=== PATIENT | female | born 1960 | race Caucasian/White ===

== ENCOUNTER 2021-04-25 13:54 | Outpatient (REF) | payer BC, SELFPAY ==
[2021-04-25 16:45] LABS: MANUAL DIFF FLAG NO
[2021-04-25 16:48] LABS: Basophils Absolute Auto 0.1 X10*3/uL (0.0-0.2); Basophils Percent Auto 1.3 % (0-2); Eosinophils Absolute Auto 0.2 X10*3/uL (0.0-0.4); Eosinophils Percent Auto 2.1 % (0-4); Hematocrit 41.2 % (37.0-47.0); Hemoglobin 13.5 g/dl (12.0-16.0); Imm Gran Abs Auto 0.02 X10*3/uL (0.00-0.03); Imm Gran Pct Auto 0.3 % (0.0-0.4); Lymphocytes Absolute Auto 2.6 X10*3/uL (1.2-4.9); Lymphocytes Percent Auto 37.3 % (20-40); Mean Corpuscular HGB Conc 32.8 g/dl (31.0-35.0); Mean Corpuscular Hemoglobin 29.4 pg (27.0-33.0); Mean Corpuscular Volume 89.8 fL (80.0-98.0); Mean Platelet Volume 11.7 fL (9.4-12.3); Monocytes Absolute Auto 0.4 X10*3/uL (0.1-1.2); Monocytes Percent Auto 5.7 % (2-11); Neutrophils Absolute Auto 3.8 x10*3/uL (2.0-8.3); Neutrophils Percent Auto 53.3 % (45-73); Platelet Count 263 X10*3/uL (160-400); Red Blood Count 4.59 X10*6/uL (4.20-5.50); Red Cell Distribution Width 13.4 % (11.0-16.0); White Blood Count 7.1 X10*3/uL (4.8-10.8)
[2021-04-25 16:49] LABS: Appearance Urine CLOUDY; Color Urine YELLOW; Glucose Urine UA NEG (NEG); Leukocyte Esterase Urine NEG (NEG); Nitrite Urine NEG (NEG); PH 5.5 (5.0-8.0); Specific Gravity - Urine >= 1.030 (1.005-1.025); Urine Blood NEG (NEG); Urine Ketones NEG (NEG); Urine Protein TRACE MG/DL (NEG-TRACE)
[2021-04-25 17:06] LABS: Alanine Aminotransferase 13 U/L (0-31); Albumin Level 4.1 g/dL (3.5-5.0); Alkaline Phosphatase 92 U/L (39-117); Anion Gap 14 (12-20); Aspartate Amino Transferase 14 U/L (5-31); Bilirubin Total 0.5 mg/dL (0.0-1.0); Blood Urea Nitrogen 13 mg/dL (9-16); Calcium 9.2 mg/dL (8.4-10.2); Carbon Dioxide 24 mmol/L (22-29); Chloride 106 mmol/L (96-108); Cholesterol 220 mg/dL; Estimated Glomerular Filt Rate > 60; Glucose Random 91 mg/dL (60-115); HDL Cholesterol 68 mg/dL; LDL Cholesterol Calculated 129 mg/dl; Potassium 4.3 mmol/L (3.3-5.1); Sodium 140 mmol/L (135-145); Total Protein 6.7 g/dL (6.5-8.0); Triglycerides 119 mg/dL
== END 2021-04-25 13:55 | disposition home or self-care (01) ==
LOC: HO.HMGCLDS 13:54
PROVIDERS: Visit Provider Internal Medicine
DX: I26.99 Other pulmonary embolism without acute cor pulmonale (principal)
CPT/HCPCS: 36415; 80053; 80061; 81003; 85025

== ENCOUNTER 2021-06-27 07:09 | Outpatient (REF) | payer BC, SELFPAY ==
--- NOTE | ~2021-06-27 | XR_ITS ---
EXAMINATION: XR KNEE, RIGHT XR KNEE, STANDING, BILATERAL CLINICAL INFORMATION: Pain. COMPARISON: None TECHNIQUE: AP standing view of both knees and lateral and sunrise views of the right knee. FINDINGS: The single standing AP view of the left knee demonstrates moderate narrowing of the medial joint space compartment with marginal spurring. The lateral joint space compartment is maintained. No acute fracture is identified. Views of the right knee demonstrates some mild varus deformity with severe narrowing of the medial joint space compartment with marginal spurring. The lateral joint space compartment is maintained. There is some narrowing of the patellofemoral joint involving the lateral facet more than the medial facet. There is some prominent spurring about the patellofemoral joint. No right knee effusion is appreciated. XR/XR knee standing BI IMPRESSION: Degenerative change of the medial joint space compartments bilaterally right greater than left. Significant right patellofemoral joint degenerative change with spurring.
--- NOTE | ~2021-06-27 | XR_ITS ---
EXAMINATION: XR KNEE, RIGHT XR KNEE, STANDING, BILATERAL CLINICAL INFORMATION: Pain. COMPARISON: None TECHNIQUE: AP standing view of both knees and lateral and sunrise views of the right knee. FINDINGS: The single standing AP view of the left knee demonstrates moderate narrowing of the medial joint space compartment with marginal spurring. The lateral joint space compartment is maintained. No acute fracture is identified. Views of the right knee demonstrates some mild varus deformity with severe narrowing of the medial joint space compartment with marginal spurring. The lateral joint space compartment is maintained. There is some narrowing of the patellofemoral joint involving the lateral facet more than the medial facet. There is some prominent spurring about the patellofemoral joint. No right knee effusion is appreciated. XR/XR knee RT 2V IMPRESSION: Degenerative change of the medial joint space compartments bilaterally right greater than left. Significant right patellofemoral joint degenerative change with spurring.
== END 2021-06-27 07:10 | disposition home or self-care (01) ==
LOC: HO.HOSX 07:09
PROVIDERS: Visit Provider Physician Assistant
DX: M17.11 Unilateral primary osteoarthritis, right knee (principal)
CPT/HCPCS: 73560; 73565

== ENCOUNTER → 2021-07-06 13:28 | Outpatient (BNVA) | payer BC, SELFPAY | PROVIDERS: PCP Internal Medicine; Visit Provider Orthopaedic Surgery | DX: M17.11 Unilateral primary osteoarthritis, right knee (principal) ==

== ENCOUNTER 2022-09-26 16:10 | Outpatient (AMB) | payer BC, SELFPAY ==
--- NOTE | 2022-09-26 16:20 | MHC.OFFWIV ---
Intake Vital Signs 09/26/22 16:24 Height 5 ft 1 in Weight 166 lb BMI 31.4 BP 122/64 Blood Pressure Location Rt brachial Position Sitting Pulse 80 Pulse Source Pulse Oximeter Temp 97.8 F Temp Source Temporal Artery Scan Pulse Oximetry (%) 96 Intake Visit Reasons: EP, Rash in mid abdomen Intake Note: pt is here for c/o rash on abd 2x weeks Patient Tobacco Use Status: Never used Tobacco Allergies amoxicillin [AMOXICILLIN] Allergy (Unknown, Verified 09/26/22 18:22) DIARRHEA Medication List - Last Reconciled 09/26/22 by Ayden Subramanian MD prednisone 60 mg (3 x 20 mg) PO DAILY HPI EP, Rash in mid abdomen HPI Details 62-year-old female presents to the office for a sick visit. Patient has a rash on her abdomen. Symptoms started a week ago. No recent travel. Predominant symptom is itching. [facility] Medical History (Updated 09/26/22 @ 18:27 by Ayden Subramanian MD) Ankle arthritis History of HTN (hypertension) Surgical History (Updated 06/27/21 @ 14:21 by JUANCARLOS Duncan) History of breast biopsy History of oral surgery Social History (Updated 06/27/21 @ 14:21 by JUANCARLOS Duncan) Unable to assess alcohol history related to: Unknown Patient Tobacco Use Status: Never used Tobacco Gender identity: Female Physical Exam Vital Signs: Last Vital Signs Temp 97.8 F 09/26/22 16:24 Pulse 80 09/26/22 16:24 BP 122/64 09/26/22 16:24 Pulse Ox 96 09/26/22 16:24 BMI result Body Mass Index 31.4 Skin Other: Abdomen: 5 centimetres erythematous rash with no vesicles or pustules. Macular rash. Assessment & Plan Assessment & Plan (1) Contact dermatitis: Code(s): L25.9 - Unspecified contact dermatitis, unspecified cause Plan: Tapering dose of prednisone given. If symptoms do not improve to follow-up here. Medications: New prednisone 60 mg (3 x 20 mg) PO DAILY 9 tabs 0RF Coding Level of Care Code Est Pt Level 3 (92864) Diagnoses Contact dermatitis L25.9
[2022-09-26 16:24] VITALS: BP 122/64; PULSE 80; TEMP 36.6; O2SAT 96; BMI 31.4
== END 2022-09-26 16:57 | disposition home or self-care (01) ==
PROVIDERS: PCP Internal Medicine; Visit Provider Internal Medicine
DX: L25.9 Unspecified contact dermatitis, unspecified cause (principal)
CPT/HCPCS: 99213

== ENCOUNTER 2022-10-10 15:48 | Outpatient (AMB) | payer BC, SELFPAY ==
--- NOTE | 2022-10-10 16:24 | MHC.OFFWIV ---
Intake Vital Signs 10/10/22 16:25 Height 5 ft 1 in Weight 164 lb BMI 31.0 BP 98/60 Blood Pressure Location Lt brachial Position Sitting Pulse 77 Pulse Source Pulse Oximeter Temp 98.1 F Temp Source Oral Pulse Oximetry (%) 96 Oxygen Delivery Method Room Air Intake Visit Reasons: EP, Rash under breast Intake Note: Pt is here today c/o Rash under bilateral breast: itchy, burning x1 month Patient Tobacco Use Status: Never used Tobacco Allergies amoxicillin [AMOXICILLIN] Allergy (Unknown, Verified 10/11/22 06:51) DIARRHEA Medication List - Last Reconciled 10/11/22 by Ayden Subramanian MD ketoconazole 2% 1 appl topical DAILY HPI EP, Rash under breast HPI Details 62-year-old female presents to the office for a sick visit. For patient has a rash under her breasts that she would like to reviewed. Initially she was seen for a rash on her abdomen and prednisone was given. Some of her symptoms subsided. However the rash under her breast has gotten prominent. Predominant symptoms are itching. [facility] Medical History (Updated 10/11/22 @ 06:52 by Ayden Subramanian MD) Ankle arthritis History of HTN (hypertension) Surgical History (Updated 06/27/21 @ 14:21 by JUANCARLOS Duncan) History of breast biopsy History of oral surgery Social History (Updated 06/27/21 @ 14:21 by JUANCARLOS Duncan) Unable to assess alcohol history related to: Unknown Patient Tobacco Use Status: Never used Tobacco Gender identity: Female Physical Exam Vital Signs: Last Vital Signs Temp 98.1 F 10/10/22 16:25 Pulse 77 10/10/22 16:25 BP 98/60 10/10/22 16:25 Pulse Ox 96 10/10/22 16:25 Oxygen Delivery Method Room Air 10/10/22 16:25 BMI result Body Mass Index 31.0 Skin Other: Erythematous rash under pendulous breast. No vesicles or pustules. Minimal scaling. Assessment & Plan Assessment & Plan (1) Tinea corporis: Code(s): B35.4 - Tinea corporis Plan: Patient was given a prescription of ketoconazole. I advised her to keep the area very dry. Use on starch powder after the cream has been applied. If symptoms do not improve to follow-up here. Medications: New ketoconazole 2% 1 appl topical DAILY 30 grams 1RF Coding Level of Care Code Est Pt Level 3 (44281) Diagnoses Tinea corporis B35.4
[2022-10-10 16:25] VITALS: BP 98/60; PULSE 77; TEMP 36.7; O2SAT 96; BMI 31.0
== END 2022-10-10 16:37 | disposition home or self-care (01) ==
PROVIDERS: PCP Internal Medicine; Visit Provider Internal Medicine
DX: B35.4 Tinea corporis (principal)
CPT/HCPCS: 99213

== ENCOUNTER 2024-01-22 14:09 | Outpatient (REF) | payer OTHER, SELFPAY ==
[2024-01-22 18:02] LABS: Influenza A PCR NEGATIVE (Negative); Influenza B PCR NEGATIVE (Negative); Resp Syncy Virus RNA Qual PCR NEGATIVE (Negative); SARS COV2 PCR INHOUSE NEGATIVE (Negative)
== END 2024-01-22 14:10 | disposition home or self-care (01) ==
LOC: HO.LAB 14:09
PROVIDERS: PCP Internal Medicine; Visit Provider Physician Assistant
DX: J06.9 Acute upper respiratory infection, unspecified (principal); H61.23 Impacted cerumen, bilateral; Z13.9 Encounter for screening, unspecified; H66.90 Otitis media, unspecified, unspecified ear
CPT/HCPCS: 0241U; 69210; 87880; 99202

== ENCOUNTER 2024-01-22 14:09 | Outpatient (AMB) | payer OTHER, SELFPAY ==
[2024-01-22 14:52] VITALS: BP 124/80; PULSE 97; TEMP 36.4; O2SAT 98; BMI 28.9
--- NOTE | 2024-01-22 14:52 | MHC.OFFWIV ---
Intake Vital Signs 01/22/24 14:52 Height 5 ft 1 in Weight 153 lb BMI 28.9 BP 124/80 Blood Pressure Location Rt brachial Position Sitting Pulse 97 Pulse Source Pulse Oximeter Temp 97.5 F Temp Source Temporal Artery Scan Pulse Oximetry (%) 98 Oxygen Delivery Method Room Air Intake Visit Reasons: EP sore throat, congestion, cough Intake Note: Pt presents to the office today for c/o sore throat, congestion, cough, headache x4 days. Patient Tobacco Use Status: Never used Tobacco Allergies amoxicillin [AMOXICILLIN] Allergy (Unknown, Verified 01/22/24 14:55) DIARRHEA HPI HPI Comments History of Present Illness Details History The patient is a 63-year-old female presenting with a sore throat and left ear pain. She reports having a sore throat for the past four days. The patient denies having a fever but does report experiencing headaches and slight fatigue. She has been self-medicating with Tylenol Extra Strength Cold and Flu formulation, which has provided minimal relief. Additionally, the patient mentioned a possible slight recent shortness of breath but has no history of asthma or chronic obstructive pulmonary disease (COPD). She denies the usage of any inhalers. There is no current sick contact reported. Physical Exam General: Cooperative, healthy appearing, comfortable and no acute distress Orientation/consciousness: Patient oriented x3 Limitations: No limitations Head: Normal to inspection Ears: Hearing grossly normal bilaterally, external ears normal and TM's normal bilaterally, mostly wax present Nose: Normal external nose present, Normal nares present and No nasal discharge present Face and sinus: Normal facial exam and Yes sinuses nontender Mouth: Normal oral and palatal mucosa present and moist mucous membranes Throat: Yes tonsils normal, Yes uvula midline. Posterior oropharynx erythema, a little red Eyes: Appearance normal, both eyes and all related structures Neck: Normal visual inspection Respiratory: Clear to auscultation bilaterally. Normal respiratory effort, able to speak in complete sentences, Actively coughing, no respiratory distress, not tachypneic, no tripod positioning and no use of accessory muscles Cardiovascular: Regular rate and rhythm. Normal S1 and S2 Skin: No rashes or lesions noted Neuro: Patient oriented x3 Extremities: Normal to inspection and Yes no clubbing, cyanosis or edema PFSH Medical History (Updated 01/22/24 @ 15:40 by Keshia Florez PA-C) History of Ankle arthritis HTN (hypertension) Surgical History (Updated 06/27/21 @ 14:21 by JUANCARLOS Duncan) History of breast biopsy History of oral surgery Social History (Updated 06/27/21 @ 14:21 by JUANCARLOS Duncan) Unable to assess alcohol history related to: Unknown Patient Tobacco Use Status: Never used Tobacco Gender identity: Female Review of Systems Const All systems reviewed & are unremarkable except as noted in HPI and below Physical Exam Vital Signs: Last Vital Signs Temp 97.5 F 01/22/24 14:52 Pulse 97 01/22/24 14:52 BP 124/80 01/22/24 14:52 Pulse Ox 98 01/22/24 14:52 Oxygen Delivery Method Room Air 01/22/24 14:52 BMI result Body Mass Index 28.9 Office Procedures Cerumen Removal Details: unable to remove bilaterally, pt unable to tolerate procedure in left ear due to pain From which ear canal was the cerumen removed: bilateral Removal: irrigation and otoscope w/curette Notes: patient tolerated procedure well and no complications [id number] Irrigation/Lavage Results AMB Rapid Strep AMB Rapid Strep Negative Last Edit by Katy Daley CMA on 01/22/24 15:06 Results Reviewed Results Reviewed: Laboratory Last Values Strep Scn Rapid Clinic Negative 01/22/24 15:06 Assessment & Plan Assessment & Plan (1) Upper respiratory tract infection: Code(s): J06.9 - Acute upper respiratory infection, unspecified Qualifiers: URI type: unspecified viral URI Qualified Code(s): J06.9 - Acute upper respiratory infection, unspecified Plan: Plan - rapid strep negative in office. Given the absence of fever and the presence of symptoms such as sore throat and headaches, the likely diagnosis is viral in nature. Tested for influenza, COVID-19, and RSV with a result expected by tomorrow. I have advised the patient that symptoms generally improve within a week or two. - Headache: Managed as a component of viral illness. Continued use of Tylenol for symptomatic relief is advised. - Follow-up: Advised to return for evaluation if symptoms worsen. Patient was informed and verbally consented to the use of an ambient scribe for clinic note documentation during this visit (2) Bilateral impacted cerumen: Code(s): H61.23 - Impacted cerumen, bilateral Plan: Cerumen Management: Unable to irrigate, recommended patient utilize Debrox drops for the next 5-7 days and return if she still feels like her ears are impacted and we could try flushing it at that time (3) Otitis media: Code(s): H66.90 - Otitis media, unspecified, unspecified ear Qualifiers: Otitis media type: unspecified Chronicity: acute Qualified Code(s): H66.90 - Otitis media, unspecified, unspecified ear Plan: Presumed infection due to pain and history of ear infections, sent antibiotic to pharmacy, sent doxycycline as patient is allergic to amoxicillin Orders: Orders AMB Rapid Strep Screen Today Z13.9 - Encounter for screening, unspecified SARS-CoV2/FLU/RSV Today J06.9 - Acute upper respiratory infection, unspecified Medications: New doxycycline hyclate 100 mg PO BID 10 tabs 0RF Coding Level of Care Code New Pt Level 4 (61407) Diagnoses Viral upper respiratory tract infection J06.9 URI type: unspecified viral URI Bilateral impacted cerumen H61.23 Acute otitis media, unspecified otitis media type H66.90 Otitis media type: unspecified Chronicity: acute CPT Codes Office Procedure - CPT: 43364-Xwc Irrigation/Lavage ([id number])
== END 2024-01-22 15:26 | disposition home or self-care (01) ==
PROVIDERS: PCP Internal Medicine; Visit Provider Physician Assistant
DX: J06.9 Acute upper respiratory infection, unspecified (principal); H61.23 Impacted cerumen, bilateral; H66.92 Otitis media, unspecified, left ear; J02.9 Acute pharyngitis, unspecified

== ENCOUNTER 2024-02-13 10:12 | Outpatient (AMB) | payer OTHER, SELFPAY ==
[2024-02-13 10:41] VITALS: BP 110/82; PULSE 88; O2SAT 97; BMI 31.4
--- NOTE | 2024-02-13 10:41 | A.OFFPC_ITS ---
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 Intake Note: Pt is here today as a New patient to est care/PE Allergies amoxicillin [AMOXICILLIN] Allergy (Unknown, Verified 02/13/24 11:15) DIARRHEA egg Allergy (Mild, Uncoded 02/13/24 11:26) Itching Medication List - Last Reconciled 02/13/24 by Rachel Burgos MD multivitamin 1 tab PO DAILY Tobacco use date assessed: 02/13/24 Dental Screening Dental Screen Date: 02/13/24 Did you have a dental visit in the last 12 months?: No Did you have a dental problem in the last 6 months where you did not have access to dental care?: No Was dental information given to patient?: No 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 She has history of depression with anxiety currently not on any medications at present time , but sees her therapist in [place], Misa Marie , every 2 weeks. She has no specific complaints at present time. She has not had a mammogram in several years now, no longer gets Pap smears, declines to to get 1, and is not up-to-date with her colon cancer screening. Patient declines screening colonoscopy. She is up-to-date with her COVID booster and Tdap but does not want to get a flu shot and is not interested in getting the shingles vaccine. [facility] Medical History (Updated 02/17/24 @ 00:18 by Rachel Burgos MD) Family history of factor V Leiden mutation Depression with anxiety Obesity History of Ankle arthritis HTN (hypertension) Surgical History History of breast biopsy History of oral surgery Family History Father Substance use disorder Paternal Grandfather Substance use disorder Paternal Uncle Substance use disorder Social History Housing: Apartment Unable to assess alcohol history related to: Unknown Patient Tobacco Use Status: Never used Tobacco e-Cigarette/Vaping Use: Never Used service: No Current occupational status: retired Gender identity: Female Cognitive needs: No Hearing needs: No Vision needs: Yes Questionnaire PHQ-9 Over the last 2 weeks, how often have you been bothered by any of the following problems? 1. Little interest or pleasure in doing things: more than half the days 2. Feeling down, depressed, or hopeless: several days 3. Trouble falling or staying asleep, or sleeping too much: several days 4. Feeling tired or having little energy: several days 5. Poor appetite or overeating: several days 6. Feeling bad about yourself - or that you are a failure or have let yourself or your family down: more than half the days 7. Trouble concentrating on things, such as reading the newspaper or watching television: more than half the days 8. Moving or speaking so slowly that other people could have noticed. Or the op posite - being so fidgety or restless that you have been moving around a lot more than usual: not at all 9. Thoughts that you would be better off or of hurting yourself in some way: not at all Total score: 10 Depression Screening Interpretation: Positive Depression Screening Follow-up: Existing condition and In treatment (sees Misa Marie in [place] every 2 weeks , no medications , previously on prozac) Depression Screening Done: Yes 10343 - PHQ-9 Billing: Yes Source: Developed by Drs. Sha Ayala, Lauar Byrd, Sundeep Black and colleagues, with an educational pily from [employer]. Thrive Questionnaire Date Thrive assessed: 02/13/24 I am a: Patient What is your living situation today?: I have a steady place to live Within the past 12 months, did the food you bought not last and you didn't have the money to get more?: Never true Within the past 12 months, did you worry whether your food would run out before you got money to buy more?: Never true Do you have trouble paying for medicines?: No Do you have trouble getting transportation to medical appointments?: No Do you have trouble paying your heating and electricity bill?: No Do you have trouble taking care of your child, family member or friend?: No Do you have trouble with day-to-day activities such as bathing, preparing meals, shopping, managing finances, etc.?: No Are you currently unemployed and looking for a job?: No Are you interested in more education?: No THRIVE Score: 0 AUDIT C Alcohol Use Questionnaire (AUDIT-C) 1. How often do you have a drink containing alcohol?: Monthly or less Total Score: 1 JEFFERY-7 AMB Questionnaire JEFFERY-7 Date JEFFERY - 7 assessed: 02/13/24 Feeling nervous, anxious, or on edge: 1 = Several days Not being able to stop or control worryin = Several days Worrying too much about different things: 1 = Several days Trouble relaxin = Not at all Being so restless that it is hard to sit still: 0 = Not at all Becoming easily annoyed or irritable: 0 = Not at all Feeling afraid as if something awful might happen: 0 = Not at all Total JEFFERY-7 score (0-4 normal; 5-9 mild; 10-14 moderate; 15-21 severe): 3 Source: Developed by Drs. Sha Ayala, Laura Byrd, Sundeep Black and colleagues, with an educational pily from [employer]. JEFFERY-7 Assessment Billing JEFFERY-7 Assessment Tool: JEFFERY-7 Assessment 87031 Review of Systems Const Denies difficulty sleeping, Denies fatigue, Denies fever(s), Denies headache(s) and Denies lethargy Eyes Details: wears reading glasses ENT Reports no additional complaints and Denies headache(s) Card Reports no additional complaints Resp Reports no additional complaints GI Reports heartburn (smoked , grilled , spicy foods ) Reports no additional complaints Musc Reports arthralgias and Reports stiffness Skin/Breast Denies breast pain, Denies breast mass, Denies rash and Denies sores Neuro Denies headache(s) Psych Reports as per HPI Endo Denies fatigue Balaji/Lymph Reports no additional complaints Aller/Immun Reports seasonal rhinorrhea Physical exam (Primary Care) Vital Signs: Last Vital Signs Pulse 88 02/13/24 10:41 BP 110/82 02/13/24 10:41 Pulse Ox 97 02/13/24 10:41 Oxygen Delivery Method Room Air 02/13/24 10:41 BMI result Body Mass Index 31.4 Tobacco/Smoking Status: Tobacco use Status Tobacco use date assessed 02/13/24 02/13/24 11:01 Patient Tobacco Use Status Never used Tobacco 02/13/24 10:43 e-Cigarette/Vaping Use Never Used 02/13/24 11:01 PHQ-9: PHQ-9 Score PHQ-9: Total score 10 02/13/24 12:29 Depression Screening Interpretation: Positive Depression Screening Follow-up: Existing condition and In treatment (sees Misa Marie in [place] every 2 weeks , no medications , previously on prozac) Const General: no acute distress and alert Nutritional Appearance: obese Orientation/consciousness: patient oriented x3 HENMT Head: Yes normocephalic and Yes atraumatic Ears: external ears normal, TM's normal bilaterally and EAC's normal General nose exam: Normal external nose present and No nasal discharge present Face and sinus: Yes face symmetric Mouth: Normal oral and palatal mucosa present, lip normal, tongue normal, oropharynx normal and moist mucous membranes Eyes General: appearance normal, both eyes and all related structures Eyelids: Yes eyelids normal Conjunctivae: conjunctivae normal Sclerae: sclerae normal Pupils: Equal, round and reactive pupils present EOM: EOMs intact bilaterally Neck Neck: Yes full ROM, Yes no lymphadenopathy and Yes supple Thyroid: Thyroid normal Chest Chest palpation & inspection: normal inspection of the chest Breast/axilla palpation: normal palpation of the breasts Resp Effort & Inspection: normal respiratory effort and able to speak in complete sentences Auscultation: clear to auscultation bilaterally Cardio Rate: regular rate Rhythm: regular rhythm Heart sounds: S1 normal heart sound present and S2 normal heart sound present GI Palpation (GI): Soft to palpation, nontender, no guarding and no masses Auscultation: normal bowel sounds General: Yes no CVA tenderness Back/Spine/Pelvis Back: no CVA tenderness and No back tenderness Skin General skin exam: no rashes or lesions noted Neuro General: patient oriented x3, gait normal, moves all extremities, Normal light touch and pain sensation, no focal motor deficits and CN's II-XI intact bilaterally Cranial nerves: Yes Equal, round and reactive pupils present Cognition (Neuro): normal cognition Gait exam (Neuro): Normal gait present Motor exam (neuro): 5/5 motor strength present throughout Extrem General: Yes normal to inspection, Yes full ROM, Yes no joint enlargement, Yes no pedal edema and Yes normal gait Psych Appearance: grossly normal and well kempt Mental Status: mental status grossly normal Speech and movement: Normal speech and movement present Affect: normal affect Attitude: cooperative Thought process: Normal thought process present Thought content: Normal thought content present Coding Level of Care Code New Pt Prev Care 40-64y(15909) Diagnoses Annual visit for general adult medical examination with abnormal findings Z00.01 Class 1 obesity without serious comorbidity with body mass index (BMI) of 31.0 to 31.9 in adult, unspecified obesity type E66.811; Z68.31 Obesity type: unspecified obesity type Obesity classification: adult class 1 (BMI 30 - 34.9) Serious obesity comorbidity presence: without serious comorbidity Body mass index: BMI 31.0-31.9 Depression with anxiety F41.8 Additional Codes PHQ-9 - 11283 - PHQ-9 Billing: Yes ([id number]) JEFFERY-7 Assessment Billing - JEFFERY-7 Assessment Tool: JEFFERY-7 Assessment 94741 ([id number]) Assessment & Plan Assessment & Plan (1) Annual visit for general adult medical examination with abnormal findings: Code(s): Z00.01 - Encounter for general adult medical examination with abnormal findings Plan: Will check routine labs and included factor 5 Leiden weaning due to positive family history. Recommended dental visit every 6 months and regular eye exams, at least every 2 years. Take adequate calcium in diet and vitamin-D 3 at 2000 IU per cap once a day, in addition to weight-bearing exercises to help maintain good muscle tone and weight control. Instructed to do self-breast exam, overdue for her breast cancer screening, mammogram ordered on this visit. She does she want to get referred for colonoscopy screening, but willing to do Cologuard testing, for colon cancer screening. Declines pelvic exams and Pap smears. Had COVID vaccine boosters and Tdap but does not want to get a flu shot or the shingles vaccine (2) Obesity: Code(s): E66.9 - Obesity, unspecified Category: Medical Qualifiers: Obesity type: unspecified obesity type Obesity classification: adult class 1 (BMI 30 - 34.9) Serious obesity comorbidity presence: without serious comorbidity Body mass index: BMI 31.0-31.9 Qualified Code(s): E66.811 - Obesity, class 1; Z68.31 - Body mass index [BMI] 31.0-31.9, adult Plan: Discussed need to increase activity and wt reduction. Recommended trying to follow a Mediterranean diet, limit foods high in fat, sugar, and calories, eat slowly, pay attention to portion sizes, plan your meals ahead of time, start regular physical activity 150 minutes of moderate intensity exercise or 90 minutes/week of vigorous exercise and increase water intake. (3) Depression with anxiety: Code(s): F41.8 - Other specified anxiety disorders Category: Medical Plan: Currently sees therapist every 2 weeks, Misa Marie , in [place] Orders: Orders Lipid Panel 02/14/24 E66.9 - Obesity, unspecified, F41.8 - Other specified anxiety disorders, M17.11 - Unilateral primary osteoarthritis, right knee, Z00.01 - Encounter for general adult medical examination with abnormal findings, Z13.220 - Encounter for screening for lipoid disorders, Z78.0 - Asymptomatic menopausal state MM tomosynthesis screening BI 02/13/24 Z12.31 - Encounter for screening mammogram for malignant neoplasm of breast Complete Blood Count Auto Diff 02/14/24 E66.9 - Obesity, unspecified, F41.8 - Other specified anxiety disorders, M17.11 - Unilateral primary osteoarthritis, right knee, Z00.01 - Encounter for general adult medical examination with abnormal findings, Z13.220 - Encounter for screening for lipoid disorders, Z78.0 - Asymptomatic menopausal state Comprehensive [place]. Panel Fast 02/14/24 E66.9 - Obesity, unspecified, F41.8 - Other specified anxiety disorders, M17.11 - Unilateral primary osteoarthritis, right knee, Z00.01 - Encounter for general adult medical examination with abnormal findings, Z13.220 - Encounter for screening for lipoid disorders, Z78.0 - Asymptomatic menopausal state Vitamin D 25-OH Total 02/14/24 E66.9 - Obesity, unspecified, F41.8 - Other specified anxiety disorders, M17.11 - Unilateral primary osteoarthritis, right knee, Z00.01 - Encounter for general adult medical examination with abnormal findings, Z13.220 - Encounter for screening for lipoid disorders, Z78.0 - Asymptomatic menopausal state Factor IX Activity 02/14/24 Z83.2 - Family history of diseases of the blood and blood-forming organs and certain disorders involving the immune mechanism Referrals Cologuard Test Z12.11 - Encounter for screening for malignant neoplasm of colon, Z12.12 - Encounter for screening for malignant neoplasm of rectum
== END 2024-02-13 14:34 | disposition home or self-care (01) ==
PROVIDERS: PCP Internal Medicine; Visit Provider Internal Medicine
DX: Z00.01 Encounter for general adult medical examination with abnormal findings (principal); E66.811 Obesity, class 1; Z68.31 Body mass index [BMI] 31.0-31.9, adult; F41.8 Other specified anxiety disorders

== ENCOUNTER → 2024-02-13 10:12 | Outpatient (BNVA) | payer OTHER, SELFPAY | PROVIDERS: PCP Internal Medicine; Visit Provider Internal Medicine | DX: Z00.01 Encounter for general adult medical examination with abnormal findings (principal); E66.811 Obesity, class 1; Z68.31 Body mass index [BMI] 31.0-31.9, adult; F41.8 Other specified anxiety disorders; Z71.3 Dietary counseling and surveillance | CPT/HCPCS: 96127; 99386 ==

== ENCOUNTER 2024-02-14 11:47 | Outpatient (REF) | payer OTHER, SELFPAY ==
[2024-02-14 12:56] LABS: MANUAL DIFF FLAG NO
[2024-02-14 13:09] LABS: Basophils Absolute Auto 0.1 X10*3/uL (0.0-0.2); Eosinophils Absolute Auto 0.2 X10*3/uL (0.0-0.4); Eosinophils Percent Auto 2.2 % (0-4); Hematocrit 41.7 % (37.0-47.0); Hemoglobin 13.9 g/dl (12.0-16.0); Imm Gran Abs Auto 0.02 X10*3/uL (0.00-0.03); Imm Gran Pct Auto 0.3 % (0.0-0.4); Lymphocytes Absolute Auto 2.7 X10*3/uL (1.2-4.9); Lymphocytes Percent Auto 34.9 % (20-40); Mean Corpuscular HGB Conc 33.3 g/dl (31.0-35.0); Mean Corpuscular Volume 89.9 fL (80.0-98.0); Mean Platelet Volume 10.9 fL (9.4-12.3); Monocytes Absolute Auto 0.4 X10*3/uL (0.1-1.2); Monocytes Percent Auto 5.1 % (2-11); Neutrophils Absolute Auto 4.3 x10*3/uL (2.0-8.3); Neutrophils Percent Auto 56.5 % (45-73); Platelet Count 282 X10*3/uL (160-400); Red Blood Count 4.64 X10*6/uL (4.20-5.50); Red Cell Distribution Width 13.1 % (11.0-16.0); White Blood Count 7.6 X10*3/uL (4.8-10.8)
[2024-02-14 13:59] LABS: Alanine Aminotransferase 18 U/L (0-31); Albumin Level 3.9 g/dL (3.5-5.0); Alkaline Phosphatase 87 U/L (39-117); Anion Gap 12 (12-20); Aspartate Amino Transferase 16 U/L (5-31); Bilirubin Total 0.6 mg/dL (0.0-1.0); Blood Urea Nitrogen 11 mg/dL (9-16); Calcium 8.2 mg/dL (8.4-10.2); Carbon Dioxide 24 mmol/L (22-29); Chloride 108 mmol/L (96-108); Cholesterol 210 mg/dL (<200); Estimated Glomerular Filt Rate > 60; Glucose Fasting 84 mg/dL (60-99); HDL Cholesterol 61 mg/dL (>40); LDL Cholesterol Calculated 124 mg/dL (<100); Potassium 3.9 mmol/L (3.3-5.1); Sodium 140 mmol/L (135-145); Total Protein 6.7 g/dL (6.5-8.0); Triglycerides 126 mg/dL (<150)
[2024-02-14 14:09] LABS: Vitamin D 25-OH Total 65.1 ng/mL (>30)
== END 2024-02-14 11:48 | disposition home or self-care (01) ==
LOC: HO.HMGCLDS 11:47
PROVIDERS: PCP Internal Medicine; Visit Provider Internal Medicine
DX: Z00.01 Encounter for general adult medical examination with abnormal findings (principal); E66.9 Obesity, unspecified; F41.8 Other specified anxiety disorders; M17.11 Unilateral primary osteoarthritis, right knee; Z78.0 Asymptomatic menopausal state; Z13.220 Encounter for screening for lipoid disorders; Z83.2 Family history of diseases of the blood and blood-forming organs and certain disorders involving the immune mechanism
CPT/HCPCS: 36415; 80053; 80061; 82306; 85025; 85250

== ENCOUNTER 2024-04-09 08:16 | Outpatient (REF) | payer OTHER, SELFPAY ==
[2024-04-09 13:07] LABS: Influenza A PCR NEGATIVE (Negative); Influenza B PCR NEGATIVE (Negative); Resp Syncy Virus RNA Qual PCR NEGATIVE (Negative); SARS COV2 PCR INHOUSE NEGATIVE (Negative)
== END 2024-04-09 08:17 | disposition home or self-care (01) ==
LOC: HO.LAB 08:16
PROVIDERS: PCP Internal Medicine; Visit Provider Nurse Practitioner Family
DX: J06.9 Acute upper respiratory infection, unspecified (principal); R05.1 Acute cough
CPT/HCPCS: 0241U; 99212

== ENCOUNTER 2024-04-09 08:16 | Outpatient (AMB) | payer OTHER, SELFPAY ==
--- NOTE | 2024-04-09 08:37 | AM.OFFWIN_ITS ---
Intake Vital Signs 04/09/24 08:44 Height 5 ft 1 in Weight 163 lb BMI 30.8 BP 106/84 Blood Pressure Location Rt brachial Position Sitting Respiration 16 Pulse 90 Pulse Source Pulse Oximeter Temp 98.3 F Temp Source Oral Pulse Oximetry (%) 98 Oxygen Delivery Method Room Air Intake Visit Reasons: EP Cough Intake Note: Pt is here today c/o cough x1day Patient Tobacco Use Status: Never used Tobacco Allergies amoxicillin [AMOXICILLIN] Allergy (Unknown, Verified 04/09/24 08:45) DIARRHEA egg Allergy (Mild, Uncoded 04/09/24 08:45) Itching HPI HPI Comments History of Present Illness Details 64 y/o female patient who presents to [facility] walk in clinic with c/o cough that started yesterday. Reports not taking OTC remedies. Denies any other URI symptoms. [facility] Medical History (Updated 04/09/24 @ 09:08 by Rossy Stafford NP) Acute respiratory disease Cough Family history of factor V Leiden mutation Depression with anxiety Obesity History of Ankle arthritis HTN (hypertension) Surgical History History of breast biopsy History of oral surgery Family History Father Substance use disorder Paternal Grandfather Substance use disorder Paternal Uncle Substance use disorder Social History Housing: Apartment Unable to assess alcohol history related to: Unknown Patient Tobacco Use Status: Never used Tobacco e-Cigarette/Vaping Use: Never Used service: No Current occupational status: retired Gender identity: Female Cognitive needs: No Hearing needs: No Vision needs: Yes Review of Systems Const All systems reviewed & are unremarkable except as noted in HPI and below Physical Exam Vital Signs: Last Vital Signs Temp 98.3 F 04/09/24 08:44 Pulse 90 04/09/24 08:44 Resp 16 04/09/24 08:44 BP 106/84 04/09/24 08:44 Pulse Ox 98 04/09/24 08:44 Oxygen Delivery Method Room Air 04/09/24 08:44 BMI result Body Mass Index 30.8 Const General: cooperative and no acute distress Orientation/consciousness: patient oriented x3 HEENT Head: Yes normocephalic Ears: external ears normal and TM abnormal with fluid behind the TM General nose exam: Nasal discharge present Face and sinus: Yes sinuses nontender Mouth: moist mucous membranes Throat: Yes uvula midline Resp Effort & Inspection: normal respiratory effort and able to speak in complete sentences Auscultation: clear to auscultation bilaterally, no crackles, no rales, no rhonchi and no wheezes Cardio Heart sounds: S1 normal heart sound present and S2 normal heart sound present Neuro General: patient oriented x3 Assessment & Plan Assessment & Plan (1) Cough: Code(s): R05.9 - Cough, unspecified Qualifiers: Cough type: acute Qualified Code(s): R05.1 - Acute cough Plan: Ordered SARs OTC cough remedies. Ordered Cough medicine. (2) Acute respiratory disease: Code(s): J06.9 - Acute upper respiratory infection, unspecified Plan: Ordered SARs OTC cough remedies. Ordered Cough medicine. Orders: Orders SARS-CoV2/FLU/RSV Today J06.9 - Acute upper respiratory infection, unspecified Medications: New dextromethorphan-guaifenesin 5-100 mg/5 mL (Robitussin Cough-Chest Congestion DM) 10 mL PO Q4-8H PRN 1,000 mL 0RF cough R05.1 - Acute cough benzonatate 200 mg (2 x 100 mg) PO TID 90 caps 0RF R05.1 - Acute cough Coding Level of Care Code Est Pt Level 4 (73955) Diagnoses Acute cough R05.1 Cough type: acute Acute respiratory disease J06.9 Time Spent (min) 20
[2024-04-09 08:44] VITALS: BP 106/84; PULSE 90; RESP 16; TEMP 36.8; O2SAT 98; BMI 30.8
== END 2024-04-09 09:10 | disposition home or self-care (01) ==
PROVIDERS: PCP Internal Medicine; Visit Provider Nurse Practitioner Family
DX: R05.1 Acute cough (principal); J06.9 Acute upper respiratory infection, unspecified

== ENCOUNTER 2024-04-13 14:50 | Outpatient (AMB) | payer OTHER, SELFPAY ==
[2024-04-13 14:59] VITALS: BP 110/76; PULSE 85; TEMP 37; O2SAT 97; BMI 30.4
--- NOTE | 2024-04-13 14:59 | AM.OFFWIN_ITS ---
Intake Vital Signs 04/13/24 14:59 Height 5 ft 1 in Weight 161 lb BMI 30.4 BP 110/76 Blood Pressure Location Rt brachial Position Sitting Pulse 85 Pulse Source Pulse Oximeter Temp 98.6 F Temp Source Oral Pulse Oximetry (%) 97 Oxygen Delivery Method Room Air Intake Visit Reasons: EP-lost appetite, fever, low body temp Intake Note: Patient here for loss of appetite, fevers that has been present for about a week or so. Patient Tobacco Use Status: Never used Tobacco Allergies amoxicillin [AMOXICILLIN] Allergy (Unknown, Verified 04/13/24 15:02) DIARRHEA egg Allergy (Mild, Uncoded 04/13/24 15:02) Itching Do you need a note to return to daycare/school/sports/work: No HPI HPI Comments History of Present Illness Details 64 y/o female patient who presents to [facility] walk in clinic with c/o URI symptoms. She was seen by me 04/09 for similar complains, SARs negative. Today Patient reports subjective fevers at home, but does not have thermometer. Reports feeling Chills and thinks has fever inside her body. Reports Cough, but now thinks the cough is Gone. She reports Poor Appetite caused by Benzonatate Pills - she stopped taking them and her appetite return. Pt thinks Azithromycin Pills will resolve her symptoms. She reports feeling infection inside her body, and usually Zpack helps alot. [facility] Medical History (Updated 04/09/24 @ 09:08 by Rossy Stafford NP) Acute respiratory disease Cough Family history of factor V Leiden mutation Depression with anxiety Obesity History of Ankle arthritis HTN (hypertension) Surgical History History of breast biopsy History of oral surgery Family History Father Substance use disorder Paternal Grandfather Substance use disorder Paternal Uncle Substance use disorder Social History Housing: Apartment Unable to assess alcohol history related to: Unknown Patient Tobacco Use Status: Never used Tobacco e-Cigarette/Vaping Use: Never Used service: No Current occupational status: retired Gender identity: Female Cognitive needs: No Hearing needs: No Vision needs: Yes Review of Systems Const All systems reviewed & are unremarkable except as noted in HPI and below Physical Exam Vital Signs: Last Vital Signs Temp 98.6 F 04/13/24 14:59 Pulse 85 04/13/24 14:59 BP 110/76 04/13/24 14:59 Pulse Ox 97 04/13/24 14:59 Oxygen Delivery Method Room Air 04/13/24 14:59 BMI result Body Mass Index 30.4 Const General: cooperative and no acute distress Nutritional Appearance: overweight Orientation/consciousness: patient oriented x3 HEENT Head: Yes normocephalic Ears: external ears normal and TM abnormal with fluid behind the TM bilateral General nose exam: Normal external nose present and No nasal discharge present Face and sinus: Yes sinuses nontender Mouth: moist mucous membranes Throat: Yes uvula midline Resp Effort & Inspection: normal respiratory effort and able to speak in complete sentences Auscultation: clear to auscultation bilaterally, no crackles, no rales, no rhonchi and no wheezes Cardio Heart sounds: S1 normal heart sound present and S2 normal heart sound present Neuro General: patient oriented x3 Assessment & Plan Assessment & Plan (1) Acute respiratory disease: Code(s): J06.9 - Acute upper respiratory infection, unspecified Plan: Ordered Z-Pack as requested. All Vitals WNL Acetaminophen for pain relief. Medications: New azithromycin 500 mg PO DAILY 3 days 3 tabs 0RF J06.9 - Acute upper respiratory infection, unspecified Coding Level of Care Code Est Pt Level 4 (37533) Diagnoses Acute respiratory disease J06.9 Time Spent (min) 20
== END 2024-04-13 15:18 | disposition home or self-care (01) ==
PROVIDERS: PCP Internal Medicine; Visit Provider Nurse Practitioner Family
DX: J06.9 Acute upper respiratory infection, unspecified (principal)

== ENCOUNTER → 2024-04-13 14:50 | Outpatient (BNVA) | payer OTHER, SELFPAY | PROVIDERS: PCP Internal Medicine | DX: J06.9 Acute upper respiratory infection, unspecified (principal) | CPT/HCPCS: 99212 ==

== ENCOUNTER 2024-08-24 14:15 | Outpatient (AMB) | payer OTHER, SELFPAY ==
--- NOTE | 2024-08-24 14:20 | AM.OFFWIN_ITS ---
Intake Vital Signs 08/24/24 14:21 Height 5 ft 1 in Weight 166 lb BMI 31.4 BP 114/60 Blood Pressure Location Rt brachial Position Sitting Pulse 79 Pulse Source Pulse Oximeter Temp 98.0 F Temp Source Oral Pulse Oximetry (%) 98 Oxygen Delivery Method Room Air Intake Visit Reasons: EP-comes & go stomach inflammation/pain Intake Note: presents with stomach pain and inflammation off and on for around 5 years, certain foods will cause inflammation, no GI Patient Tobacco Use Status: Never used Tobacco Allergies environmental allergies Allergy (Mild, Verified 08/24/24 14:25) sinus congestion amoxicillin (AMOXICILLIN) Allergy (Unknown, Verified 08/24/24 14:20) DIARRHEA blue cheese Allergy (Mild, Uncoded 08/24/24 14:25) Stomach Upset egg Allergy (Mild, Uncoded 04/13/24 15:02) Itching ranch Allergy (Mild, Uncoded 08/24/24 14:25) Stomach Upset Do you need a note to return to daycare/school/sports/work: No HPI HPI Comments History of Present Illness Details 64 y/o Female patient who presents to health system walk in clinic with c/o Abdominal issues for 5 years now. Reports symptoms on/off associated with Pain on Left Upper/Lower quadrants. Describes the pain as Sharp and pressure - denies constipation or diarrhea. According to Patient she has never been evaluated or t reated for this. She has mainly been managing her symptoms with home remedies. She has been eliminating the foods that has been causing or triggering the symptoms. Last Colon Screening was done 2024 via [facility]olog[facility] - [facility] results. She does Take Trumeric Capsules daily as supplement. [facility] Medical History (Updated 08/24/24 @ 15:10 by Rossy Stafford NP) Abdominal pain Acute respiratory disease Cough Family history of factor V Leiden mutation Depression with anxiety Obesity History of Ankle arthritis HTN (hypertension) Surgical History History of breast biopsy History of oral surgery Family History Father Substance use disorder Paternal Grandfather Substance use disorder Paternal Uncle Substance use disorder Social History Housing: Apartment Unable to assess alcohol history related to: Unknown Patient Tobacco Use Status: Never used Tobacco e-Cigarette/Vaping Use: Never Used service: No Current occupational status: retired Gender identity: Female Cognitive needs: No Hearing needs: No Vision needs: Yes Review of Systems Const All systems reviewed & are unremarkable except as noted in HPI and below Physical Exam Vital Signs: Last Vital Signs Temp 98.0 F 08/24/24 14:21 Pulse 79 08/24/24 14:21 BP 114/60 08/24/24 14:21 Pulse Ox 98 08/24/24 14:21 Oxygen Delivery Method Room Air 08/24/24 14:21 BMI result Body Mass Index 31.4 Const General: no acute distress Nutritional Appearance: obese Orientation/consciousness: patient oriented x3 GI Inspection: Yes Abdominal panniculus present Palpation (GI): Soft to palpation, not firm, Tenderness to palpation present (GI) in the LLQ and in the LUQ, no guarding, not rigid and No hepatosplenomegaly present Auscultation: normal bowel sounds Rectal Exam - Female: deferred Neuro General: patient oriented x3, gait normal and moves all extremities Psych Speech and movement: Normal speech and movement present Assessment & Plan Assessment & Plan (1) Abdominal pain: Code(s): R10.9 - Unspecified abdominal pain Qualifiers: Abdominal location: generalized Qualified Code(s): R10.84 - Generalized abdominal pain Plan: Advise to make Diet modifications Lifestyle changes; weight loss, increase Fiber intake, increase water intake, avoid Spicy/Oily foods etc Advised to schedule an appointment with PCP for possible GI referral. Stop using Turmeric Capsules. Coding Level of Care Code Est Pt Level 4 (55860) Diagnoses Generalized abdominal pain R10.84 Abdominal location: generalized Time Spent (min) 20
[2024-08-24 14:21] VITALS: BP 114/60; PULSE 79; TEMP 36.7; O2SAT 98; BMI 31.4
== END 2024-08-24 15:11 | disposition home or self-care (01) ==
PROVIDERS: PCP Internal Medicine; Visit Provider Nurse Practitioner Family
DX: R10.84 Generalized abdominal pain (principal)

== ENCOUNTER → 2024-08-24 14:15 | Outpatient (BNVA) | payer OTHER, SELFPAY | PROVIDERS: PCP Internal Medicine; Visit Provider Nurse Practitioner Family | DX: R10.84 Generalized abdominal pain (principal) | CPT/HCPCS: 99212 ==

== ENCOUNTER 2024-09-14 13:42 | Outpatient (AMB) | payer OTHER, SELFPAY ==
--- OUTSIDE RECORDS SUMMARY | 2024-09-14 13:54 | XMS_ITS | Clinical Summary ---
Demographics Address [address] [place] [address] Home Phone Mobile Phone Preferred Language Mexican Marital Status Unknown Episcopalian Affiliation Unknown Race White Ethnic Group Not or Lati no Author Organization [facility] Address [address] [place] [phone] Phone Care Team Providers Care Machine Ii Engraver Name Role Phone Rossy Kraft MD Primary Care Provider Medications LORazepam (ATIVAN) 1 MG tablet 1 tablet Orally 1 hour pre-procedur e 03/28/2015 Active multivitamins capsule Orally Active FLAXSEED OIL ORAL Orally Active CHOLECALCIFEROL , VITAMIN D3, (VITAMIN D3 ORAL) 1 capsule Orally Once a day Active CALCIUM ORAL Orally Active ascorbic acid, vitamin C, 1,000 mg Chew Take 1 tablet by mouth daily. Active glucosamine 500 mg Cap Take 1 capsule by mouth daily. with a meal Active Family History Medical History Relation Comments Alcohol abuse Father Depression Father Stroke Maternal Grandmother CV disease Mother Heart disease Mother Hypertension Mother Relation Status Comments Father Alive Maternal Grandmother Mother Alive Social History Tobacco Use Types Packs/Day Years Used Date Smoking Tobacco: Never Assessed Education Answer Date Recorded Are you interested in more education? Not on tutu e 06/08/2022 Are you concerned about learning? Not on file 06/08/2022 No 06/08/2022 No 06/08/2022 Digital Access Answer Date Recorded No 07/09/2022 No 07/09/2022 No 07/09/2022 Reliable internet access at home? Not on file 07/09/2022 Device with a working camera? Not on file Comments No Sex and Gender Information Value Date Recorded Sex Assigned at Not on file Legal Sex Female 9:48 PM EDT Gender Identity Not on file Sexual Orientation Not on file Last Filed Vital Signs Vital Sign Reading Time Taken Comments Blood Pressure 158/90 04/21/2015 12:22 PM EST Pulse 88 04/21/2015 12:22 PM EST Temperature - - Respiratory Rate - - Oxygen Saturation - - Inhaled Oxygen Concentration - - Weight 79.4 kg (175 lb) 04/21/2015 12:22 PM EST Height 156.2 cm (5' 1.5 ) 04/21/2015 12:22 PM ES T Body Mass Index 32.53 04/21/2015 12:22 PM EST Plan of Treatment Not on file Medical Devices Not on file Insurance [facility]LED[facility]T [facility]T [facility]T [facility] [employer] [facility] [employer] [facility] * Guarantor: Francisco J Ascencio Account Type Relation to Patient Date of Phone Billing Address Personal/Family Self [address] [place] [address] [employer] [facility] * Guarantor: Francisco J Ascencio Account Type Relation to Patient Date of Phone Billing Address Personal/Family Self [address] [place] [address] [employer] [facility] Care Teams Machine Ii Engraver Relationship Specialty Start Date End Date Rossy Kraft MD [address] [place] [phone] [email or web address] PCP - General Internal Medicine 06/21/17 Additional Source Comments The information contained in this document represents components of the legal health record. It is not the complete legal health record.[facility]
[2024-09-14 14:12] VITALS: BP 116/86; PULSE 82; RESP 15; TEMP 36.7; O2SAT 97; BMI 31.2
--- NOTE | 2024-09-14 14:12 | A.OFFPC_ITS ---
Vital Signs 09/14/24 14:12 Height 5 ft 1 in Weight 165 lb BMI 31.2 BP 116/86 Blood Pressure Location Lt brachial Position Sitting Respiration 15 Pulse 82 Pulse Source Pulse Oximeter Temp 98.1 F Temp Source Oral Pulse Oximetry (%) 97 Oxygen Delivery Method Room Air Intake Visit Reasons: Follow up walkin/gastro issues Intake Note: Pt is here today for her f/u walkin/gastro issues Allergies environmental allergies Allergy (Mild, Verified 09/20/24 17:21) sinus congestion amoxicillin (AMOXICILLIN) Allergy (Unknown, Verified 09/20/24 17:21) DIARRHEA blue cheese Allergy (Mild, Uncoded 09/20/24 17:21) Stomach Upset egg Allergy (Mild, Uncoded 09/20/24 17:21) Itching ranch Allergy (Mild, Uncoded 09/20/24 17:21) Stomach Upset Medication List - Last Reconciled 09/20/24 by Rachel Burgos MD B.coagulans-digestive enzym 10 2 billion cell (Digestive Advantage Probiotics Plus Gas) caps PO Ca carb-D3-mag [id number]-[id number]-Zn 300 mg-20 mcg- 25 mg-0.5 mg 1 tab PO DAILY multivitamin 1 tab PO DAILY pantoprazole 40 mg PO DAILY turmeric mg PO PRN Tobacco use date assessed: 09/14/24 Dental Screening Dental Screen Date: 02/13/24 HPI Follow up walkin/gastro issues HPI Details - The patient is a 64-year-old female pr esenting for follow-up after a recent walk-in clinic visit for epigastric pain and food intolerance. - She experiences clamping in the stomac h radiating to the left side, with regular bowel movements and no bloating. - The patient has been advised against t urmeric due to potential liver damage, and she has not taken Pepcid AC or omeprazole. - A Cologuard test and a colonoscopy 15 years ago were normal. - She reports nausea during episodes of pain but denies burning sensation in the throat. - Dietary modifications include avoiding spicy, grilled, and acidic foods, caffeine, and alcohol. [facility] Medical History (Updated 09/14/24 @ 14:24 by Rachel Burgos MD) Epigastric pain Abdominal pain Acute respiratory disease Cough Family history of factor V Leiden mutation Depression with anxiety Obesity History of Ankle arthritis HTN (hypertension) Surgical History History of breast biopsy History of oral surgery Family History Father Substance use disorder Paternal Grandfather Substance use disorder Paternal Uncle Substance use disorder Social History Housing: Apartment Unable to assess alcohol history related to: Unknown Patient Tobacco Use Status: Never used Tobacco e-Cigarette/Vaping Use: Never Used service: No Current occupational status: retired Gender identity: Female Cognitive needs: No Hearing needs: No Vision needs: Yes Questionnaire PHQ-9 Over the last 2 weeks, how often have you been bothered by any of the following problems? 4. Feeling tired or having little energy: not at all Source: Developed by Drs. Sha Ayala, Laura Byrd, Sundeep Black and colleagues, with an educational pily from [email or web address]. Thrive Questionnaire Date Thrive assessed: 02/13/24 I am a: Patient What is your living situation today?: I have a steady place to live Within the past 12 months, did the food you bought not last and you didn't have the money to get more?: Never true Within the past 12 months, did you worry whether your food would run out before you got money to buy more?: Sometimes True Do you have trouble paying for medicines?: No Do you have trouble getting transportation to medical appointments?: No Do you have trouble paying your heating and electricity bill?: No Do you have trouble taking care of your child, family member or friend?: No Do you have trouble with day-to-day activities such as bathing, preparing meals, shopping, managing finances, etc.?: No Are you currently unemployed and looking for a job?: No Are you interested in more education?: Yes Please select the resources that you would like help with: Job search/training Currently or been in a relationship where the following occur: Controlled Emotionally THRIVE Score: 2 AUDIT C Alcohol Use Questionnaire (AUDIT-C) 1. How often do you have a drink containing alcohol?: 2-3 times a week 2. How many drinks containing alcohol do you have on a typical day when you are drinking?: 1 or 2 3. How often do you have six or more drinks on one occasion?: Never Total Score: 3 JEFFERY-7 AMB Questionnaire JEFFERY-7 Date JEFFERY - 7 assessed: 02/13/24 Feeling nervous, anxious, or on edge: 1 = Several days Not being able to stop or control worryin = Several days Worrying too much about different things: 1 = Several days Trouble relaxin = Not at all Being so restless that it is hard to sit still: 0 = Not at all Becoming easily annoyed or irritable: 1 = Several days Feeling afraid as if something awful might happen: 0 = Not at all Total JEFFERY-7 score (0-4 normal; 5-9 mild; 10-14 moderate; 15-21 severe): 4 Source: Developed by Drs. Sha Ayala, Laura Byrd, Sundeep Black and colleagues, with an educational pily from [email or web address]. Review of Systems Const All systems reviewed & are unremarkable except as noted in HPI and below Physical exam (Primary Care) Vital Signs: Last Vital Signs Temp 98.1 F 09/14/24 14:12 Pulse 82 09/14/24 14:12 Resp 15 09/14/24 14:12 BP 116/86 09/14/24 14:12 Pulse Ox 97 09/14/24 14:12 Oxygen Delivery Method Room Air 09/14/24 14:12 BMI result Body Mass Index 31.2 Tobacco/Smoking Status: Tobacco use Status Tobacco use date assessed 09/14/24 09/14/24 14:17 Patient Tobacco Use Status Never used Tobacco 09/14/24 14:17 e-Cigarette/Vaping Use Never Used 09/14/24 14:17 PHQ-9: PHQ-9 Score PHQ-9: Total score 4 09/14/24 14:24 Thrive Assessment: Date of Thrive Assessment Date Thrive assessed 02/13/24 09/14/24 14:17 Currently or been in a relationship where the following occur: Controlled Emotionally Const General: no acute distress and alert Nutritional Appearance: obese Orientation/consciousness: patient oriented x3 HENMT Head: Yes normocephalic Ears: external ears normal General nose exam: Normal external nose present and No nasal discharge present Face and sinus: Yes face symmetric Mouth: Normal oral and palatal mucosa present, oropharynx normal and moist mucous membranes Eyes General: appearance normal, both eyes and all related structures Neck Neck: Yes full ROM, Yes no lymphadenopathy and Yes supple Thyroid: Thyroid normal Resp Effort & Inspection: normal respiratory effort and able to speak in complete sentences Auscultation: clear to auscultation bilaterally Cardio Rate: regular rate Rhythm: regular rhythm Heart sounds: S1 normal heart sound present and S2 normal heart sound present GI Palpation (GI): Soft to palpation, nontender, no guarding and no masses Auscultation: normal bowel sounds General: Yes no CVA tenderness Back/Spine/Pelvis Back: no CVA tenderness and No back tenderness Skin General skin exam: no rashes or lesions noted Neuro General: patient oriented x3, gait normal, moves all extremities and no focal motor deficits Cognition (Neuro): normal cognition Extrem General: Yes normal to inspection, Yes full ROM, Yes no joint enlargement, Yes no pedal edema and Yes normal gait Coding Level of Care Code Est Pt Level 4 (98063) Diagnoses Epigastric pain R10.13 Assessment & Plan Assessment & Plan (1) Epigastric pain: Code(s): R10.13 - Epigastric pain Category: Medical Plan: Prescribed pantoprazole 40 mg to take 1 tablet daily as an hour before meals when necessary. An upper GI series is planned to further investigate gastrointestinal symptoms. Dietary modifications include avoiding foods and s ubstances that exacerbate symptoms, such as spicy foods, caffeine, and alcohol. Patient was informed and verbally consented to the use of an ambient scribe for clinic note documentation during this visit. Orders: Orders FL upper GI series 09/14/24 R10.13 - Epigastric pain Medications: New pantoprazole 40 mg PO DAILY 30 tabs 1RF
== END 2024-09-14 14:35 | disposition home or self-care (01) ==
LOC: HO.HMCC 13:43
PROVIDERS: PCP Internal Medicine; Visit Provider Internal Medicine
DX: R10.13 Epigastric pain (principal)

== ENCOUNTER → 2024-09-14 13:42 | Outpatient (BNVA) | payer OTHER, SELFPAY | PROVIDERS: PCP Internal Medicine; Visit Provider Internal Medicine | DX: R10.13 Epigastric pain (principal) | CPT/HCPCS: 99212 ==

== ENCOUNTER 2025-01-13 08:52 | Outpatient (REF) | payer OTHER, SELFPAY ==
--- NOTE | ~2025-01-13 | FL_ITS ---
EXAMINATION: XR FLUOROSCOPY UPPER GI SERIES CLINICAL INFORMATION: Epigastric pain, reflux type symptoms. COMPARISON: None TECHNIQUE: Fluoroscopic air contrast upper GI examination was performed utilizing standard techniques with thin and thick barium and effervescent granules. Numerous spot images were obtained. Several fluoroscopic image hold cine sequences were also obtained. FINDINGS: UPPER GI SERIES: Lateral cine images of the oropharynx and hypopharynx demonstrate normal swallow mechanism with normal epiglottic inversion and soft palate elevation. No laryngeal penetration, glottic or subglottic aspiration identified. No nasopharyngeal reflux present. Hypopharyngeal structures appear normal without evidence of mass or diverticulum. There was no significant cricopharyngeal achalasia. Dual and single contrast images of the esophagus demonstrate a mildly patulous caliber. There is grossly normal contour and mucosal pattern. No evidence of stricture, mass, or ulcerations identified. Esophageal peristalsis was moderately disordered. Large paraesophageal hiatus hernia present, containing the entirety of the gastric fundus. Episodic gastroesophageal reflux was noted to the level of the thoracic inlet. Dual contrast and single contrast images of the stomach demonstrated normal contour and mucosal pattern without evidence of gross mass or ulcer. Normal gastric rugal fold pattern. Contrast freely passed into the gastric antrum and duodenal bulb without delay. Single and air-contrast images of the duodenal bulb demonstrate no abnormality. The duodenal sweep has a normal appearance, course, and mucosal fold appearance. FLUOROSCOPY TIME: 3 minutes, 21 seconds Number of Spot Images:13 Number of cines obtained: 11 DOSE AREA PRODUCT: [id number] uGy-m2 (microgray-meter squared) FL/FL upper GI w air IMPRESSION: 1. Moderately disordered esophageal peristalsis. Mildly patulous appearing esophagus. 2. Large paraesophageal hiatus hernia present which contains the entirety of the gastric fundus. 3. Episodic gastroesophageal reflux noted to the level of the thoracic inlet. Electronically signed by: Baldemar Bishop MD 01/13/2025 02:26 [facility]
== END 2025-01-13 08:53 | disposition home or self-care (01) ==
LOC: HO.XRAY 08:52
PROVIDERS: PCP Internal Medicine; Visit Provider Internal Medicine
DX: R10.13 Epigastric pain (principal)
CPT/HCPCS: 74246

== ENCOUNTER → 2025-01-13 08:56 | Outpatient (BNV) | payer OTHER, SELFPAY | PROVIDERS: PCP Internal Medicine; Visit Provider Radiology Diagnostic Radiology | DX: R10.13 Epigastric pain (principal) | CPT/HCPCS: 74246 ==